=== PATIENT | male | born 1955 | race Caucasian/White ===

== ENCOUNTER → 2019-08-08 | Day surgery (SDC) | payer OTHER ==
[2019-08-01 13:03] LABS: BASOPHILS # (AUTO) 0.1 (0.0-0.1); BASOPHILS % 0.7 % (0.0-1.0); EOSINOPHILS # (AUTO) 0.1 (0.0-0.4); HEMATOCRIT 43.6 % (38.2-49.6); HEMOGLOBIN 14.8 g/dL (14.0-18.0); LYMPHOCYTES # (AUTO) 1.8 (1.0-3.2); LYMPHOCYTES % 25.1 % (18.0-39.1); MEAN CORPUSCULAR HEMOGLOBIN 29.7 pg (28-32); MEAN CORPUSCULAR HGB CONC 33.9 g/dL (31-35); MEAN CORPUSCULAR VOLUME 87.4 fL (81-99); MONOCYTES # (AUTO) 0.7 (0.2-0.8); MONOCYTES % 9.2 % (4.4-11.3); NEUTROPHILS # (AUTO) 4.5 (2.1-6.9); NEUTROPHILS % 62.7 % (38.7-80.0); PLATELET COUNT 225 x10e3/uL (140-360); RED BLOOD COUNT 4.99 x10e6/uL (4.3-5.7); RED CELL DISTRIBUTION WIDTH 11.9 % (11.7-14.4)
[~2019-08-08] MED LIST: HYOSCYAMINE 0.125 MG TAB ONE; KETAMINE HCL INJ 50 MG/ML 10 ML VIAL ONE; LIDOCAINE HCL 2% LOCAL INJ 5 ML SDV VIAL INJ ONE; MIDAZOLAM HCL 2 MG/2 ML VIAL ONE; PROPOFOL IV EMULSION 10 MG/ML 50 ML VIAL ONE
[2019-08-08 16:45] VITALS: BP 117/94
--- NOTE | 2019-08-08 17:09 | Operative Report ---
DATE OF PROCEDURE: 08/08/2019 SURGEON: Jelani Silverio MD PROCEDURE: Colonoscopy with polypectomy and biopsies. INDICATION FOR COLONOSCOPY: Colorectal cancer screening. MEDICATIONS: The patient was done under MAC, please see anesthesiologist's note. PROCEDURE IN DETAIL: With the patient in left lateral decubitus position, flexible fiberoptic Olympus colonoscope was inserted into the rectum with ease and advanced all the way to the cecum. An approximately 5 mm polyp was noted in the cecum and that was removed per snare electrocautery and site was hemoclipped x1. The ascending colon and transverse colon appeared to be within normal limits. One polyp was hot biopsied from the descending colon. Mild patchy inflammatory changes were noted in the left colon. Biopsies were obtained. One polyp was hot biopsied from the sigmoid colon. Five polyps were hot biopsied and two polyps were snared in the rectum. The scope was then retroflexed into the distal rectum and large internal hemorrhoids were noted, none of which was actively bleeding. The scope was then straightened out, it was subsequently withdrawn. The patient tolerated the procedure well. IMPRESSION: 1. Cecal polyp approximately 5 mm in size, snared and site hemoclipped. 2. Descending colon polyp, hot biopsied. 3. Mild patchy left-sided colitis. 4. Sigmoid colon polyp x1, hot biopsied. 5. Rectal polyps x7, 2 snared and 5 hot biopsied, #8 internal hemorrhoids, none actively bleeding. PLAN: Follow up histology. Initiate high-fiber, low-fat diet. Initiate high-fiber supplement. A total of 10 polyps were removed. The patient might benefit from a followup colonoscopy in 2 to 3 years. Jelani Silverio MD [facility] [place] /[id number] cc: Daniel Kim MD
== END | disposition home or self-care (01) ==
LOC: OR 12:15
PROVIDERS: ATTEND Internal Medicine Gastroenterology
DX: Z12.11 Encounter for screening for malignant neoplasm of colon (principal); K63.5 Polyp of colon; K62.1 Rectal polyp; K51.50 Left sided colitis without complications; E78.5 Hyperlipidemia, unspecified; N20.0 Calculus of kidney; Z01.810 Encounter for preprocedural cardiovascular examination; Z01.812 Encounter for preprocedural laboratory examination; Z87.891 Personal history of nicotine dependence
CPT/HCPCS: 36415; 45380; 45384; 45385; 85025; 93005; J2001; J2250; J2704; 45378

== ENCOUNTER → 2024-09-18 | Outpatient (REF) | payer MEDICARE | LOC: US 13:49 | PROVIDERS: ATTEND Urology | DX: N20.0 Calculus of kidney (principal) | CPT/HCPCS: 74018; 76770; 76857 ==